=== PATIENT | male | born 1965 | race Two or more races ===

== ENCOUNTER 2018-03-28 14:28 | Outpatient (CLI) | payer OTHER | END 2018-03-28 14:39 | disposition home or self-care (01) | LOC: RAD 14:28 | DX: Z76.89 Persons encountering health services in other specified circumstances (principal); M79.652 Pain in left thigh; M79.605 Pain in left leg; M25.552 Pain in left hip ==

== ENCOUNTER 2018-04-28 09:56 | Outpatient (CLI) | payer OTHER | END 2018-04-28 11:30 | disposition home or self-care (01) | LOC: LAB 09:56 | DX: D64.89 Other specified anemias (principal); E88.89 Other specified metabolic disorders; D68.8 Other specified coagulation defects; N39.0 Urinary tract infection, site not specified; Z22.322 Carrier or suspected carrier of Methicillin resistant Staphylococcus aureus; E83.42 Hypomagnesemia; E03.8 Other specified hypothyroidism; E13.21 Other specified diabetes mellitus with diabetic nephropathy; E55.9 Vitamin D deficiency, unspecified ==

== ENCOUNTER 2018-05-22 08:11 | Inpatient (IN) | payer OTHER ==
[~2018-05-22] VITALS: Ht 165.1 cm; Wt 86.2 kg
== END 2018-05-26 15:01 | DRG 470 ==
LOC: O/R 05-23 05:35 → SURG 05-23 05:35 → SURH 05-23 07:00 → SURG 05-23 13:08 → SURH 05-23 16:05 → SURG 05-26 15:01
PROVIDERS: ADMIT Orthopaedic Surgery
PROC: 0SRD0J9 Replacement of Left Knee Joint with Synthetic Substitute, Cemented, Open Approach (ICD-10-PCS; principal; 2018-05-23 07:00)
DX: M17.12 Unilateral primary osteoarthritis, left knee (principal)

== ENCOUNTER 2019-04-12 15:15 | Outpatient (CLI) | payer OTHER | END 2019-04-12 15:18 | disposition home or self-care (01) | LOC: RAD 15:15 | DX: Z96.652 Presence of left artificial knee joint (principal) ==

== ENCOUNTER 2023-04-14 09:34 | Outpatient (CLI) | payer OTHER | END 2023-04-14 09:46 | disposition home or self-care (01) | LOC: RAD 09:34 | PROVIDERS: ATTEND Orthopaedic Surgery | DX: Z96.652 Presence of left artificial knee joint (principal) ==

== ENCOUNTER 2024-02-25 08:42 | Outpatient (CLI) | payer OTHER ==
[2024-02-25 09:46] LABS: PH,URINE 5.5 (5.0-8.0); URINE APPEARANCE Clear; URINE BILIRRUBIN Negative (NEGATIVE); URINE BLOOD Negative; URINE COLOR Yellow; URINE GLUCOSE Negative (NEGATIVE); URINE KETONE Negative (NEGATIVE); URINE LEUKOCYTE Negative; URINE NITRATE Negative; URINE PROTEIN Negative (NEGATIVE); URINE UROBILINOGEN 0.2 E.U./dl
[2024-02-25 09:50] LABS: URINE WBC 1.8 uL (0.0-23.2)
[2024-02-25 09:52] LABS: HEMATOCRIT 45.3 % (39.0-48.0); HEMOGLOBIN 15.2 g/dL (13-16.00); MEAN CELL VOLUME 84.1 fL (80.0-100.00); MEAN CORPUSCULAR HEMOGLOBIN 28.1 pg (27.00-32.0); MEAN CORPUSCULAR HGB CONC 33.4 g/dl (32.0-36.0); PLATELET COUNT 162 K/uL (150-450); RED BLOOD COUNT 5.39 M/uL (4.00-6.00); RED CELL DISTRIBUTION WIDTH 15.6 % (11.5-14.5)
[2024-02-25 10:08] LABS: URINE BACTERIA 3.7 uL (0.0-1933); URINE CAST 0.45 uL (0.0-1.40); URINE RBC 0.7 uL (0.0-20.8)
[2024-02-25 10:24] LABS: INR 1.08; PARTIAL THROMBOPLASTIN TIME 27.3 SECONDS (22.0-34.0); PROTHROMBIN TIME 11.7 SECONDS (9.0-11.5)
[2024-02-25 10:32] LABS: BILIRUBIN TOTAL 0.91 mg/dL (0.3-1.2); CALCIUM 9.3 mg/dL (8.5-10.1); CREATININE SERUM 1.01 mg/dL (0.70-1.30); GFR 75.61; GLOBULINA 3.2 G/DL (2.4-3.5); POTASSIUM 4.13 mEq/L (3.5-5.1); TOTAL PROTEIN 7.2 gm/dL (6.4-8.2)
== END 2024-02-25 08:49 | disposition home or self-care (01) ==
LOC: LAB 08:42
PROVIDERS: ATTEND Surgery
DX: K57.20 Diverticulitis of large intestine with perforation and abscess without bleeding (principal); R10.32 Left lower quadrant pain; R19.4 Change in bowel habit

== ENCOUNTER 2024-03-02 09:00 | Inpatient (IN) | payer OTHER ==
[~2024-03-02] VITALS: Ht 165.1 cm; Wt 83.9 kg
[2024-03-02 10:06] VITALS: BP 137/72
[2024-03-08] MEDS ORDERED: ABATINEX680 MG (13:28)
[2024-03-08] MEDS ORDERED: FENOFIBRATE160 MG (13:28)
[2024-03-08] MEDS ORDERED: LISINOPRIL5 MG (13:28)
[2024-03-08] MEDS ORDERED: OMEPRAZOLE20 MG (13:28)
[2024-03-08] MEDS ORDERED: LOSARTAN POTASS50 MG (13:28)
[2024-03-08] MEDS ORDERED: PANTOPRAZOLE SO40 MG (13:28)
[2024-03-08] MEDS ORDERED: ONDANSETRON HCL 2 MG/ML VIAL IV PRN (15:45)
[2024-03-08] MEDS ORDERED: OxyCODONE HCL 5 MG TABLET (ROXICODONE) PO PRN (15:45)
[2024-03-08] MEDS ORDERED: DEXTROSE 50 % IN WATER 0.5 G/ML DISP.SYRIN IV PRN (15:45)
[2024-03-08] MEDS ORDERED: 0.9 % SODIUM CHLORIDE 1,000 ML IV SCH (15:45)
[2024-03-08] MEDS ORDERED: MORPHINE SULFATE 4 MG/ML CARTRIDGE IV PRN (15:45)
[2024-03-08] MEDS ORDERED: METRONIDAZOLE/SODIUM CHLORIDE 500 MG/100 ML PIGGYBACK IV ONE (16:00)
[2024-03-08] MEDS ORDERED: CEFTRIAXONE SODIUM 2,000 MG VIAL IV ONE (16:00)
[2024-03-08] MEDS ORDERED: LIDOCAINE HCL 1%/EPINEPHRINE 20ML VIAL IJ ONE (16:15)
[2024-03-08] MEDS ORDERED: BUPIVACAINE HCL 30 ML VIAL IJ ONE (16:15)
[2024-03-08] MEDS ORDERED: HYOSCYAMINE SULFATE 0.125 MG TAB.SUBL SL SCH (17:00)
[2024-03-08] MEDS ORDERED: GABAPENTIN 300 MG CAPSULE PO SCH (17:00)
[2024-03-08] MEDS ORDERED: POLYETHYLENE GLYCOL 3350 17 GM BLIST.PACK PO SCH (17:00)
[2024-03-08] MEDS ORDERED: ACETAMINOPHEN 500 MG GEL..CAP PO SCH (20:00)
[2024-03-08] MEDS ORDERED: MORPHINE SULFATE 2 MG/ML CARTRIDGE IV ONE (20:45)
[2024-03-08 20:49] LABS: HEMATOCRIT 45.6 % (39.0-48.0); HEMOGLOBIN 15.1 g/dL (13-16.00); MEAN CELL VOLUME 84.9 fL (80.0-100.00); PLATELET COUNT 170 K/uL (150-450); RED BLOOD COUNT 5.37 M/uL (4.00-6.00); RED CELL DISTRIBUTION WIDTH 15.6 % (11.5-14.5)
[2024-03-08] MEDS ORDERED: CELECOXIB 200 MG CAPSULE PO SCH (21:00)
[2024-03-08] MEDS ORDERED: FAMOTIDINE/PF 20 MG/2 ML VIAL IV PUSH SCH (21:00)
[2024-03-08 21:15] LABS: ALBUMIN 3.6 gm/dL (3.4-5.0); CALCIUM 8.8 mg/dL (8.5-10.1); CREATININE SERUM 1.15 mg/dL (0.70-1.30); GFR 65.09; PHOSPHOROUS 3.1 mg/dL (2.5-4.9); POTASSIUM 4.31 mEq/L (3.5-5.1)
[2024-03-08 21:24] VITALS: BP 147/74; O2SAT 94
[2024-03-09 00:25] VITALS: BP 156/76; O2SAT 97
[2024-03-09 06:42] LABS: HEMATOCRIT 43.6 % (39.0-48.0); HEMOGLOBIN 14.7 g/dL (13-16.00); MEAN CORPUSCULAR HEMOGLOBIN 28.3 pg (27.00-32.0); MEAN CORPUSCULAR HGB CONC 33.7 g/dl (32.0-36.0); PLATELET COUNT 163 K/uL (150-450); RED BLOOD COUNT 5.19 M/uL (4.00-6.00); RED CELL DISTRIBUTION WIDTH 15.5 % (11.5-14.5)
[2024-03-09 07:23] LABS: ALBUMIN 3.3 gm/dL (3.4-5.0); CALCIUM 8.5 mg/dL (8.5-10.1); CREATININE SERUM 0.94 mg/dL (0.70-1.30); GFR 82.14; POTASSIUM 4.29 mEq/L (3.5-5.1)
[2024-03-09 08:46] VITALS: BP 116/64; O2SAT 95
[2024-03-09 16:35] VITALS: BP 90/57; O2SAT 95
[2024-03-09] MEDS ORDERED: ENOXAPARIN SODIUM 40 MG/0.4 ML SYRINGE SUBCUTANEO SCH (17:00)
[2024-03-10] VITALS: BP 105/63; O2SAT 96
[2024-03-10 08:00] VITALS: BP 119/76; O2SAT 97
[2024-03-10] MEDS ORDERED: ENOXAPARIN SODIUM 40 MG/0.4 ML SYRINGE SUBCUTANEO SCH (09:00)
[2024-03-10] MEDS ORDERED: ACETAMINOPHEN500 M2 PO (13:48)
[2024-03-10] MEDS ORDERED: LEVSIN/SL0.125 MG SL (13:49)
[2024-03-10] MEDS ORDERED: NEURONTIN300 MG PO (13:49)
[2024-03-10] MEDS ORDERED: INTESTINEX680 M2 PO (13:50)
== END 2024-03-10 14:57 | disposition home or self-care (01) | DRG 330 ==
LOC: SURH 03-08 09:00 → O/R 03-08 09:40 → SURH 03-08 09:40
PROVIDERS: ADMIT Surgery; ATTEND Surgery
PROC: 0DBP4ZZ Excision of Rectum, Percutaneous Endoscopic Approach (ICD-10-PCS; 2024-03-08)
PROC: 0DQ84ZZ Repair Small Intestine, Percutaneous Endoscopic Approach (ICD-10-PCS; 2024-03-08)
PROC: 0W9G4ZZ Drainage of Peritoneal Cavity, Percutaneous Endoscopic Approach (ICD-10-PCS; 2024-03-08)
PROC: 0DJD8ZZ Inspection of Lower Intestinal Tract, Via Natural or Artificial Opening Endoscopic (ICD-10-PCS; 2024-03-08)
PROC: 0DTN4ZZ Resection of Sigmoid Colon, Percutaneous Endoscopic Approach (ICD-10-PCS; principal; 2024-03-08 11:30)
DX: K57.20 Diverticulitis of large intestine with perforation and abscess without bleeding (principal); K91.71 Accidental puncture and laceration of a digestive system organ or structure during a digestive system procedure; K66.0 Peritoneal adhesions (postprocedural) (postinfection); R10.32 Left lower quadrant pain; R19.4 Change in bowel habit

== ENCOUNTER 2024-04-03 08:03 | Outpatient (CLI) | payer OTHER ==
[~2024-04-03 08:03] MED LIST: ABATINEX680 MG; ACETAMINOPHEN500 M2 PO; FENOFIBRATE160 MG; INTESTINEX680 M2 PO; LEVSIN/SL0.125 MG SL; LISINOPRIL5 MG; LOSARTAN POTASS50 MG; NEURONTIN300 MG PO; OMEPRAZOLE20 MG; PANTOPRAZOLE SO40 MG
== END 2024-04-03 08:07 | disposition home or self-care (01) ==
LOC: RAD 08:03
PROVIDERS: ATTEND Orthopaedic Surgery
DX: M25.512 Pain in left shoulder (principal)

== ENCOUNTER 2024-12-03 07:02 | Outpatient (CLI) | payer OTHER ==
[2024-12-03 07:45] LABS: BASO % 0.7 % (0.1-1.2); EOS # 0.13 (0.04-0.54); EOS % 1.8 % (0.7-7.0); LYMPH # 2.88 (1.18-3.74); LYMPH % 40.2 % (19.3-53.1); MEAN PLATELET VOLUME 11.90 fl (9.4-12.4); MONO # 0.38 (0.24-0.82); MONO % 5.3 % (4.7-12.5); NEUT # 3.70 (1.56-6.13); NEUT % 51.7 % (34.0-71.1); RED CELL DISTRIBUTION WIDTH 13.6 % (11.6-14.4)
[2024-12-03 08:12] LABS: URINE APPEARANCE Clear; URINE BACTERIA 4.8 uL (0.0-1933); URINE BILIRRUBIN Negative (NEGATIVE); URINE BLOOD Negative; URINE COLOR Yellow; URINE GLUCOSE Negative (NEGATIVE); URINE KETONE Negative (NEGATIVE); URINE LEUKOCYTE Negative; URINE NITRATE Negative; URINE PROTEIN Negative (NEGATIVE); URINE UROBILINOGEN 0.2 E.U./dl
[2024-12-03 08:13] LABS: URINE CAST 0.14 uL (0.0-1.40); URINE EPITHELIAL CELLS 1.0 uL (0.0-38.8); URINE RBC 0.0 uL (0.0-20.8); URINE WBC 1.6 uL (0.0-23.2)
[2024-12-03 08:22] LABS: INR 1.06
[2024-12-03 08:37] LABS: COL EPI 98 SECONDS (82-175)
[2024-12-03 08:39] LABS: ALT/SGPT 35.0 U/L (12-78); AST/SGOT 24.0 U/L (15-37); BILIRUBIN TOTAL 0.64 mg/dL (0.3-1.2); BUN CREA RATIO 13.0 (7.0-25.0); CREATININE SERUM 1.05 mg/dL (0.70-1.30); GFR 72.05; GLOBULINA 3.0 G/DL (2.4-3.5); GLUCOSE FASTING 101.0 mg/dL (65-100); OSMOLALITY SERUM 287.0 MOSM/KG (275-295)
== END 2024-12-03 07:07 | disposition home or self-care (01) ==
LOC: RAD 07:02
PROVIDERS: ATTEND Orthopaedic Surgery
DX: D64.9 Anemia, unspecified (principal); D68.8 Other specified coagulation defects; E88.9 Metabolic disorder, unspecified; N39.0 Urinary tract infection, site not specified; Z22.322 Carrier or suspected carrier of Methicillin resistant Staphylococcus aureus; E11.9 Type 2 diabetes mellitus without complications; Z76.89 Persons encountering health services in other specified circumstances

== ENCOUNTER 2024-12-18 15:07 | Outpatient (CLI) | payer OTHER ==
[~2024-12-18] VITALS: Ht 165.1 cm; Wt 83.9 kg
[2024-12-18 15:21] VITALS: BP 150/83
== END 2024-12-18 15:14 | disposition home or self-care (01) ==
LOC: EKG 15:07
PROVIDERS: ATTEND Orthopaedic Surgery
DX: I20.0 Unstable angina (principal)

== ENCOUNTER 2024-12-24 05:57 | Day surgery (SDC) | payer OTHER ==
[2024-12-24] MEDS ORDERED: BUPIVACAINE HCL 30 ML VIAL IJ ONE (08:45)
[2024-12-24] MEDS ORDERED: CEFAZOLIN SODIUM 1,000 MG VIAL IV ONE (08:45)
[2024-12-24] MEDS ORDERED: EPINEPHRINE HCL/PF 1 MG/ML AMPUL IR ONE (08:45)
[2024-12-24] MEDS ORDERED: MORPHINE SULFATE 4 MG/ML VIAL IV ONE ×2 (11:20→11:50)
== END 2024-12-24 14:00 | disposition home or self-care (01) ==
LOC: CIR.AMB 05:57 → O/R 12-26 08:40
PROVIDERS: ATTEND Orthopaedic Surgery
DX: M75.122 Complete rotator cuff tear or rupture of left shoulder, not specified as traumatic (principal); M19.012 Primary osteoarthritis, left shoulder; M75.22 Bicipital tendinitis, left shoulder; M65.812 Other synovitis and tenosynovitis, left shoulder; M24.112 Other articular cartilage disorders, left shoulder

== ENCOUNTER 2025-02-08 11:37 | Emergency (ER) | payer OTHER ==
[~2025-02-08] VITALS: Ht 165.1 cm; Wt 86.2 kg
[2025-02-08] MEDS ORDERED: KETOROLAC TROMETHAMINE 30 MG VIAL IM STA (13:04)
[2025-02-08] MEDS ORDERED: KETOROLAC TROMETHAMINE 30 MG VIAL ONE (13:07)
[2025-02-08] MEDS ORDERED: DICLOFENAC POTA50 MG PO (15:20)
== END 2025-02-08 15:30 | disposition home or self-care (01) ==
LOC: ER 11:37
DX: M77.8 Other enthesopathies, not elsewhere classified (principal)
CPT/HCPCS: 73130; 96372; 99283; J1885